=== PATIENT | male | born 1995 | race Caucasian/White ===

== ENCOUNTER 2022-07-26 18:53 | Emergency (ER) | payer BC, OTHER ==
[2022-07-26 19:15] VITALS: BP 144/82; PULSE 89; RESP 16; TEMP 98.2
[2022-07-26] MEDS ORDERED: ACET/COD 300 MG/30 MG STARTER PACK 6 TAB BTL PO STA (19:41)
[2022-07-26] MEDS ORDERED: IBUPROFEN 600 MG STARTER PACK 4 TAB BTL PO STA (19:41)
[2022-07-26] MEDS ORDERED: AMOXIC-POT CLAV 875MG STARTER PACK 2 TAB BTL PO STA (19:41)
[2022-07-26] MEDS ORDERED: HYDROcodone/APAP 5-325MG 1 EACH TAB PO STA (19:42)
--- NOTE | 2022-07-26 19:45 | ED ---
ENT HPI - General Chief complaint: Skin/Abscess/Foreign Body Stated complaint: INFECTED TOOTH Time Seen by Provider: 07/26/22 19:16 Source: patient, RN notes reviewed Mode of arrival: ambulatory Limitations: no limitations - History of Present Illness Initial comments: This is a 27-year-old male who presents to the emergency department for concerns of a dental abscess. States that he has had increasing pain to the teeth in the right lower jaw. Reports increasing swelling around the right lower jaw as well. States that he has chipped teeth in that area, which he believes caused an infection. He has been taking [id number] medication that he cannot recall the name of as well as Orajel with no improvement in pain. Currently seeing a dentist. Denies any fevers. Denies any fevers, chills, sore throat, cough, dyspnea, chest pain, palpitations, abdominal pain, nausea, vomiting, diarrhea, back pain, or headaches. MD complaint: tooth pain Onset/Timin - Related Data Home Medications Medication Instructions Recorded Confirmed Albuterol Inhaler [Ventolin 1 - 2 puff INHALATION Q6HR PRN 08/30/14 08/30/14 Inhaler] Previous Rx's Medication Instructions Recorded Albuterol Inhaler [Ventolin Hfa 1 - 2 puff INHALATION Q4-6H PRN #1 08/30/14 Inhaler] inhaler predniSONE 50 mg PO DAILY #5 tab 08/30/14 Amoxic-Pot Clav 875-125Mg 1 tab PO BID 7 Days #14 tab 07/26/22 [Augmentin 875-125] Ibuprofen 600 mg PO Q6H PRN #15 tab 07/26/22 Allergies Allergy/AdvReac Type Severity Reaction Status Date / Time No Known Allergies Allergy Verified 07/26/22 19:14 Review of Systems ROS Statement: Those systems with pertinent positive or pertinent negative responses have been documented in the HPI. ROS Other: All systems not noted in ROS Statement are negative. Past Medical History Past Medical History: Asthma History of Any Multi-Drug Resistant Organisms: None Reported Past Surgical History: No Surgical Hx Reported Past Psychological History: Depression Past Alcohol Use History: None Reported Past Drug Use History: None Reported General Exam Limitations: no limitations General appearance: alert, in no apparent distress Head exam: Present: atraumatic, normocephalic, normal inspection ENT exam: Present: other (Mild tenderness and possible mild fullness to the right lower jaw. Multiple dental caries and chipped teeth. There is no swelling or induration to the floor of the mouth.) Respiratory exam: Present: normal lung sounds bilaterally. Absent: respiratory distress, wheezes, rales, rhonchi, stridor Cardiovascular Exam: Present: regular rate, normal rhythm, normal heart sounds. Absent: systolic murmur, diastolic murmur, rubs, gallop, clicks Neurological exam: Present: alert, oriented X3, CN II-XII intact Psychiatric exam: Present: normal affect, normal mood Skin exam: Present: warm, dry, intact, normal color. Absent: rash Course Vital Signs 07/26/22 19:11 Temperature 98.2 F Pulse Rate 89 Respiratory 16 Rate Blood Pressure 144/82 O2 Sat by Pulse 97 Oximetry Medical Decision Making - Medical Decision Making This is a 27-year-old male who presents to the emergency department for dental pain. Was pt. sent in by a medical professional or institution? @ -No Did you speak to anyone other than the patient for history? @ -No Did you review nursing and triage notes? @ -Yes, and I agree, it is accurate with regards to the patient's symptoms. Were old charts reviewed? @ -No Differential Diagnosis? @ -Differential Dental Pain: Dental abscess, chipped tooth, dental carries, candace's angina, trigeminal neuralgia, this is not meant to be an all-inclusive list. What testing was considered but not performed? (CT, X-rays, U/S, labs)? Why? @ -None What meds were considered but not given? Why? @ -None Did you discuss the management of the patient with other professionals? @ -No Did you reconcile home meds? @ -No Was smoking cessation discussed for >3mins.? @ -No Was critical care preformed (if so, how long)? @ -No Were there social determinants of health that impacted care today? How? (Homelessness, low income, unemployed, alcoholism, drug addiction, transportation, low edu. Level, literacy, decrease access to med. care, shelter, rehab)? @ -No Was there de-escalation of care discussed even if they declined? (Discuss DNR or withdrawal of care, Hospice)? @ -No What co-morbidities impacted this encounter? (DM, HTN, Smoking, COPD, CAD, Cancer, CVA, Hep., AIDS, mental health diagnosis, sleep apnea, morbid obesity)? @ -None Was patient admitted / discharged? @ -Discharged. Physical exam consistent with dental infection versus possible developing dental abscess. Will treat patient with a course of antibiotics. Prescription for Augmentin provided with dosing instructions reviewed. Advised ibuprofen and Tylenol as needed for pain relief. Patient counseled on the need for oral hygiene. He is also instructed to become established with a dentist for ongoing dental care. Undiagnosed new problem with uncertain prognosis? @ -None Drug Therapy requiring intensive monitoring for toxicity (Heparin, Nitro, Insulin, Cardizem)? @ -None Were any procedures done? @ -None Diagnosis/symptom? @ -Dental infection Acute, or Chronic, or Acute on Chronic? @ -Acute Uncomplicated (without systemic symptoms) or Complicated (systemic symptoms)? @ -Uncomplicated Side effects of treatment? @ -None Exacerbation, Progression, or Severe Exacerbation] @ -Not applicable Poses a threat to life or bodily function? @ -No Return precautions reviewed in depth, the patient is instructed to return to the emergency department with any new, worsening, or concerning symptoms. Patient verbalized understanding. This case was discussed in detail with the attending ED physician, Dr. Rae. Presentation, findings, and treatment plan discussed in detail as well. Disposition Clinical Impression: Dental abscess Disposition: HOME SELF-CARE Instructions (If sedation given, give patient instructions): Dental Abscess (ED), Toothache (ED) Additional Instructions: Return to the emergency department with any new, worsening, or concerning symptoms. Take the antibiotic as prescribed for 7 days. Alternate with ibuprofen and Tylenol for pain relief. You can also continue using the Orajel. Make sure that you become established with a dentist for ongoing management. Follow up with your primary care provider in 1-2 days. Prescriptions: Amoxic-Pot Clav 875-125Mg [Augmentin 875-125] 1 tab PO BID 7 Days #14 tab Ibuprofen 600 mg PO Q6H PRN #15 tab PRN Reason: Pain Is patient prescribed a controlled substance at d/c from ED?: No Referrals: Socrates Yates MD [Primary Care Provider] - 1-2 days
== END 2022-07-26 19:54 | disposition home or self-care (01) ==
LOC: EC 18:53
DX: K04.7 Periapical abscess without sinus (principal); J45.909 Unspecified asthma, uncomplicated; F32.A Depression, unspecified; Z79.899 Other long term (current) drug therapy
CPT/HCPCS: 99283

== ENCOUNTER 2023-08-01 22:44 | Emergency (ER) | payer OTHER ==
[2023-08-01 23:23] VITALS: RESP 18
--- NOTE | 2023-08-02 00:17 | ED ---
General Adult HPI - General Chief complaint: Upper Respiratory Infection Stated complaint: SOB congestion fatigue cough Time Seen by Provider: 08/01/23 23:04 Source: patient Mode of arrival: ambulatory Limitations: no limitations - History of Present Illness Initial comments: 28-year-old male with a past medical history significant for asthma presented to the ED with complaints of cough, congestion, dyspnea for the past week and a half. Denies fever or chills. Denies chest pain. Of note, patient noted to answer yes under suicidal ideation screening questions. Asked the question about this. Patient reports no history of self-harm or suicidal ideation. Denies auditory or visual hallucinations. Denies homicidal ideation. Patient reports that he is currently trying to find counseling at this moment. No other complaints at this time. - Related Data Home Medications Medication Instructions Recorded Confirmed Albuterol Inhaler [Ventolin 1 - 2 puff INHALATION Q6HR PRN 08/30/14 08/30/14 Inhaler] Previous Rx's Medication Instructions Recorded Albuterol Inhaler [Ventolin Hfa 1 - 2 puff INHALATION Q4-6H PRN #1 08/30/14 Inhaler] inhaler predniSONE 50 mg PO DAILY #5 tab 08/30/14 Amoxic-Pot Clav 875-125Mg 1 tab PO BID 7 Days #14 tab 07/26/22 [Augmentin 875-125] Ibuprofen 600 mg PO Q6H PRN #15 tab 07/26/22 Albuterol Inhaler [Ventolin Hfa 1 - 2 puff INHALATION Q6H PRN #1 08/02/23 Inhaler] each predniSONE [Deltasone] 20 mg PO BID 5 Days #10 tab 08/02/23 Allergies Allergy/AdvReac Type Severity Reaction Status Date / Time No Known Allergies Allergy Verified 08/01/23 22:59 Review of Systems ROS Statement: Those systems with pertinent positive or pertinent negative responses have been documented in the HPI. ROS Other: All systems not noted in ROS Statement are negative. Past Medical History Past Medical History: Asthma History of Any Multi-Drug Resistant Organisms: None Reported Past Surgical History: No Surgical Hx Reported Past Psychological History: Depression Past Alcohol Use History: None Reported Past Drug Use History: None Reported General Exam Limitations: no limitations General appearance: alert, in no apparent distress Eye exam: Present: normal appearance Neck exam: Present: normal inspection Respiratory exam: Present: normal lung sounds bilaterally Cardiovascular Exam: Present: regular rate GI/Abdominal exam: Present: soft Neurological exam: Present: alert, oriented X3 Skin exam: Present: warm, dry Course Vital Signs 08/01/23 22:52 Temperature 98.8 F Pulse Rate 108 H Respiratory 18 Rate Blood Pressure 124/82 O2 Sat by Pulse 98 Oximetry Medical Decision Making - Medical Decision Making Was pt. sent in by a medical professional or institution (, [facility], [employer], urgent care, hospital, or care home...) When possible be specific @ -No Did you speak to anyone other than the patient for history (EMS, parent, family, police, friend...)? What history was obtained from this source @ -No Did you review nursing and triage notes (agree or disagree)? Why? @ -I reviewed and agree with nursing and triage notes Were old charts reviewed (outside hosp., previous admission, EMS record, old EKG, old radiological studies, urgent care reports/EKG's, care home records)? Report findings @ -No old charts were reviewed Differential Diagnosis (chest pain, altered mental status, abdominal pain women, abdominal pain men, vaginal bleeding, weakness, fever, dyspnea, syncope, headache, dizziness, GI bleed, back pain, seizure, CVA, palpatations, mental health, musculoskeletal)? @ -Differential Dyspnea: Coronary syndrome, arrhythmia, tamponade, asthma, COPD, pulmonary embolism, p neumonia, pneumothorax, pulmonary effusion, anaphylaxis, diabetic ketoacidosis, flailed chest, pulmonary contusion, diaphragmatic rupture, anemia, neuromuscular, this is not meant to be an all-inclusive list. EKG interpreted by me (3pts min.). @ -As above X-rays interpreted by me (1pt min.). @ -Chest x-ray interpreted me which revealed no evidence of acute finding. CT interpreted by me (1pt min.). @ -None done U/S interpreted by me (1pt. min.). @ -None done What testing was considered but not performed or refused? (CT, X-rays, U/S, labs)? Why? @ -None What meds were considered but not given or refused? Why? @ -None Did you discuss the management of the patient with other professionals (professionals i.e. , [facility], [employer], lab, RT, psych nurse, social science teacher, sand temperer, teacher, information assurance officer, immigration case worker)? Give summary @ -No Was smoking cessation discussed for >3mins.? @ -No Was critical care preformed (if so, how long)? @ -No Were there social determinants of health that impacted care today? How? (Homelessness, low income, unemployed, alcoholism, drug addiction, transportation, low edu. Level, literacy, decrease access to med. care, assisted, r ehab)? @ -No Was there de-escalation of care discussed even if they declined (Discuss DNR or withdrawal of care, Hospice)? DNR status @ -No What co-morbidities impacted this encounter? (DM, HTN, Smoking, COPD, CAD, Cancer, CVA, ARF, Chemo, Hep., AIDS, mental health diagnosis, sleep apnea, morbid obesity)? @ -Asthma Was patient admitted / discharged? Hospital course, mention meds given and route, prescriptions, significant lab abnormalities, going to OR and other pertinent info. @ -Discharge 28-year-old male presents to the ED with complaints of cough, congestion, dyspnea for the past week. On examination lungs clear with no evidence of respiratory distress. Serology panel negative. Chest x-ray revealed no evidence of pneumonia or other acute process. Patient discharged home with prescriptions for albuterol inhaler and prednisone. Regarding patient's response when asked yes if he wanted to , patient currently reports that he has had no prior history of self-harm or suicidal ideation. Currently has no plans of suicidal ideation and denies homicidal ideation. Patient reports that he is following with his PCP to attempt to get counseling for this. Patient was discharged home in stable condition with instructions to follow-up with his PCP within the next few days. Discussed return precautions with patient who verbalized agreement. Undiagnosed new problem with uncertain prognosis? @ -No Drug Therapy requiring intensive monitoring for toxicity (Heparin, Nitro, Insulin, Cardizem)? @ -No Were any procedures done? @ -No Diagnosis/symptom? @ -Viral URI Acute, or Chronic, or Acute on Chronic? @ -Acute Uncomplicated (without systemic symptoms) or Complicated (systemic symptoms)? @ -Uncomplicated Side effects of treatment? @ -No Exacerbation, Progression, or Severe Exacerbation? @ -No Poses a threat to life or bodily function? How? (Chest pain, [place], [place], pneumonia, PE, COPD, DKA, ARF, appy, cholecystitis, CVA, Diverticulitis, Homicidal, Suicidal, threat to staff... and all critical care pts) @ -No - Lab Data Lab Results 08/01/23 Range/Units 23:33 Influenza Type A (PCR) Not Detected (Not Detectd) Influenza Type B (PCR) Not Detected (Not Detectd) RSV (PCR) Not Detected (Not Detectd) SARS-CoV-2 (PCR) Not Detected (Not Detectd) Disposition Clinical Impression: Viral URI Disposition: HOME SELF-CARE Condition: Good Additional Instructions: Please return to the Emergency Department if symptoms worsen or any other concerns. Please follow-up with your primary care provider. Prescriptions: predniSONE [Deltasone] 20 mg PO BID 5 Days #10 tab Albuterol Inhaler [Ventolin Hfa Inhaler] 1 - 2 puff INHALATION Q6H PRN #1 each PRN Reason: Shortness Of Breath Is patient prescribed a controlled substance at d/c from ED?: No Referrals: Socrates Yates MD [Primary Care Provider] - 1-2 days Time of Disposition: 00:36
--- NOTE | 2023-08-02 00:28 | XR ---
EXAM: XR Chest, 2 Views CLINICAL HISTORY: ITS.REASON XR Reason: r/o pna TECHNIQUE: Frontal and lateral views of the chest. COMPARISON: No relevant prior studies available. FINDINGS: Lungs: Unremarkable. No consolidation. Pleural space: Unremarkable. No pneumothorax. Heart: Unremarkable. No cardiomegaly. Mediastinum: Unremarkable. Normal mediastinal contour. Bones/joints: Unremarkable. No acute fracture. IMPRESSION: Normal chest x-rays.
[2023-08-02] MEDS: predniSONE 50 MG TAB PO STA (00:56)
[2023-08-02 01:38] VITALS: BP 118/65; PULSE 78; TEMP 97.7
== END 2023-08-02 00:58 | disposition home or self-care (01) ==
LOC: EC 22:44
DX: J06.9 Acute upper respiratory infection, unspecified (principal); J45.909 Unspecified asthma, uncomplicated; Z79.899 Other long term (current) drug therapy
CPT/HCPCS: 71046; 87636; 99285

== ENCOUNTER 2024-04-19 17:06 | Emergency (ER) | payer OTHER ==
[2024-04-19 17:10] VITALS: RESP 20
--- NOTE | 2024-04-19 17:28 | XR ---
EXAMINATION TYPE: XR hand complete RT DATE OF EXAM: 04/19/2024 5:19 PM COMPARISON: None CLINICAL INDICATION: Male, 28 years old with history of Dog Bite; PHH, pain TECHNIQUE: XR hand complete RT 3 views were obtained. FINDINGS: Normal alignment of the visualized joints. No acute osseous pathology is identified. No e vidence of soft tissue swelling. No significant degeneration. No radiopaque foreign body. No lacerati on definitively visualized. IMPRESSION: 1. No acute osseous pathology. 2. No radiopaque foreign body. 3. Soft tissue laceration not definitively visualized. [facility], , 04/19/2024 5:26 PM
--- NOTE | 2024-04-19 17:43 | ED ---
Wound/Laceration HPI - General Source: patient, RN notes reviewed Mode of arrival: ambulatory Limitations: no limitations - History of Present Illness Onset/Timin -: hour(s) Extremity Location: Right: Hand <Mazin Salcedo - Last Filed: 04/19/24 17:41> <Edis Montana - Last Filed: 04/20/24 22:25> - General Chief Complaint: Wound/Laceration Stated Complaint: R hand lac Time Seen by Provider: 04/19/24 17:18 - History of Present Illness Initial Comments: Quick note: This is a 28-year-old male presenting with dog bite of right hand x 1 hour ago. Patient states he was bitten by a medium size (40 pound) known dog. States he came immediately to the ER following the bite. States the dog's rabies vaccination is up-to-date as well as his tetanus vaccination status. (Mazin Salcedo) 28-year-old male presenting with chief complaint of dog bite. Patient was bitten by his family dog about an hour ago. He has a puncture wound to the center of the right hand. Dog's vaccinations are up-to-date and his tetanus vaccination is up-to-date. He has full range of motion and sensation. No obvious deformity. (Edis Montana) - Related Data Home Medications Medication Instructions Recorded Confirmed Albuterol Inhaler [Ventolin 1 - 2 puff INHALATION Q6HR PRN 08/30/14 08/30/14 Inhaler] Previous Rx's Medication Instructions Recorded Albuterol Inhaler [Ventolin Hfa 1 - 2 puff INHALATION Q4-6H PRN #1 08/30/14 Inhaler] inhaler predniSONE 50 mg PO DAILY #5 tab 08/30/14 Amoxic-Pot Clav 875-125Mg 1 tab PO BID 7 Days #14 tab 07/26/22 [Augmentin 875-125] Ibuprofen 600 mg PO Q6H PRN #15 tab 07/26/22 Albuterol Inhaler [Ventolin Hfa 1 - 2 puff INHALATION Q6H PRN #1 08/02/23 Inhaler] each predniSONE [Deltasone] 20 mg PO BID 5 Days #10 tab 08/02/23 Amoxic-Pot Clav 875-125Mg 1 tab PO BID 7 Days #14 tab 04/19/24 [Augmentin 875-718] Allergies Allergy/AdvReac Type Severity Reaction Status Date / Time No Known Allergies Allergy Verified 04/19/24 17:09 Review of Systems ROS Other: All systems not noted in ROS Statement are negative. <Mazin Salcedo - Last Filed: 04/19/24 17:41> ROS Other: All systems not noted in ROS Statement are negative. <Edis Montana - Last Filed: 04/20/24 22:25> ROS Statement: Those systems with pertinent positive or pertinent negative responses have been documented in the HPI. Past Medical History Past Medical History: Asthma History of Any Multi-Drug Resistant Organisms: None Reported Past Surgical History: No Surgical Hx Reported Past Psychological History: Depression Smoking Status: Never smoker Past Alcohol Use History: None Reported Past Drug Use History: None Reported <Mazin Salcedo - Last Filed: 04/19/24 17:41> General Exam Limitations: no limitations <Mazin Salcedo - Last Filed: 04/19/24 17:41> General appearance: alert, in no apparent distress Head exam: Present: atraumatic, normocephalic, normal inspection Eye exam: Present: normal appearance, EOMI Neck exam: Present: normal inspection. Absent: meningismus Respiratory exam: Absent: respiratory distress Right Hand Wrist exam: Present: full ROM, tenderness, laceration (Puncture) Neurological exam: Present: alert, oriented X3 Psychiatric exam: Present: normal affect, normal mood <Edis Montana - Last Filed: 04/20/24 22:25> - General Exam Comments Initial Comments: Visual Physical Exam Vital signs reviewed General: Well-appearing, nontoxic, no acute distress. Head: Normocephalic, atraumatic Eyes: PERRLA, EOMI ENT: Airway patent Chest: Nonlabored breathing Skin: No visual rash, normal skin tone Neuro: Alert and oriented 3 Musculoskeletal: No gross abnormalities. Patient's right hand is bandaged (Mazin Salcedo) Course Vital Signs 04/19/24 04/19/24 17:08 19:05 Temperature 98.1 F 98.0 F Pulse Rate 112 H 99 Respiratory 20 20 Rate Blood Pressure 122/79 115/75 O2 Sat by Pulse 97 98 Oximetry Medical Decision Making <Mazin Salcedo - Last Filed: 04/19/24 17:41> <Edis Montana - Last Filed: 04/20/24 22:25> - Medical Decision Making I completed the quick note portion of this chart signed DIO Brown (Mazin Salcedo) Was pt. sent in by a medical professional or institution ([employer], [employer]LL[employer] PROCESSING MACHINE TENDER, urgent care, hospital, or retirement...) When possible be specific @ -No Did you speak to anyone other than the patient for history (EMS, parent, family, police, friend...)? What history was obtained from this source @ -No Did you review nursing and triage notes (agree or disagree)? Why? @ -I reviewed and agree with nursing and triage notes Were old charts reviewed (outside hosp., previous admission, EMS record, old EKG, old radiological studies, urgent care reports/EKG's, retirement records)? Report findings @ -No old charts were reviewed Differential Diagnosis (chest pain, altered mental status, abdominal pain women, abdominal pain men, vaginal bleeding, weakness, fever, dyspnea, syncope, headache, dizziness, GI bleed, back pain, seizure, CVA, palpatations, mental health, musculoskeletal)? @ -Differential includes uncomplicated dog bite, fracture, foreign body EKG interpreted by me (3pts min.). @ -As above X-rays interpreted by me (1pt min.). @ -X-ray shows no acute osseous pathology. No radiopaque foreign body. Soft tissue laceration not definitively visualized CT interpreted by me (1pt min.). @ -None done U/S interpreted by me (1pt. min.). @ -None done What testing was considered but not performed or refused? (CT, X-rays, U/S, labs)? Why? @ -None What meds were considered but not given or refused? Why? @ -None Did you discuss the management of the patient with other professionals (professionals i.e. [employer], [employer] PROCESSING MACHINE TENDER, lab, RT, psych nurse, social media job titles, longshore equipment operator, teacher, public affairs officer, case checker)? Give summary @ -No Was smoking cessation discussed for >3mins.? @ -No Was critical care preformed (if so, how long)? @ -No Were there social determinants of health that impacted care today? How? (Homelessness, low income, unemployed, alcoholism, drug addiction, transportation, low edu. Level, literacy, decrease access to med. care, fci, rehab)? @ -No Was there de-escalation of care discussed even if they declined (Discuss DNR or withdrawal of care, Hospice)? DNR status @ -No What co-morbidities impacted this encounter? (DM, HTN, Smoking, COPD, CAD, Cancer, CVA, ARF, Chemo, Hep., AIDS, mental health diagnosis, sleep apnea, morbid obesity)? @ -None Was patient admitted / discharged? Hospital course, mention meds given and route, prescriptions, significant lab abnormalities, going to OR and other pertinent info. @ -28-year-old male presenting chief complaint of dog bite. He was bitten by his own dog on the center of his right hand. He is neurovascularly intact. Tetanus is up-to-date. His dog has also been vaccinated. Wound is thoroughly irrigated and dressed. Patient is started on Augmentin. Educated on wound care and signs of infection. Follow-up with PCP. Report back to ER with any new or worsening symptoms. Discussed return parameters and answered all questions. Patient conveyed verbal understanding and agreed to the plan. I discussed this case in detail with my attending Dr. Rodas Undiagnosed new problem with uncertain prognosis? @ -No Drug Therapy requiring intensive monitoring for toxicity (Heparin, Nitro, Insulin, Cardizem)? @ -No Were any procedures done? @ -No Diagnosis/symptom? @ -Dog bite Acute, or Chronic, or Acute on Chronic? @ -Acute Uncomplicated (without systemic symptoms) or Complicated (systemic symptoms)? @ -uncomplicated Side effects of treatment? @ -No Exacerbation, Progression, or Severe Exacerbation? @ -No Poses a threat to life or bodily function? How? (Chest pain, [place], [place], pneumonia, PE, COPD, DKA, ARF, appy, cholecystitis, CVA, Diverticulitis, Homicidal, Suicidal, threat to staff... and all critical care pts) @ -Low likelihood (Edis Montana) Disposition <Mazin Salcedo - Last Filed: 04/19/24 17:41> Is patient prescribed a controlled substance at d/c from ED?: No Time of Disposition: 18:46 <Edis Montana - Last Filed: 04/20/24 22:25> Clinical Impression: Dog bite Disposition: HOME SELF-CARE Condition: Good Instructions (If sedation given, give patient instructions): Animal Bite (ED) Additional Instructions: Follow-up with PCP. Report back to ER with any new or worsening symptoms. Keep the wound clean dry and covered. Wash daily with soap and water. Take medication as prescribed. Prescriptions: Amoxic-Pot Clav 875-125Mg [Augmentin 875-125] 1 tab PO BID 7 Days #14 tab Referrals: Socrates Yates MD [Primary Care Provider] - 1-2 days
[2024-04-19] MEDS: AMOXIC-POT CLAV 875MG STARTER PACK 2 TAB BTL PO STA (19:01)
[2024-04-19 19:06] VITALS: BP 115/75; PULSE 99; TEMP 98
== END 2024-04-19 19:05 | disposition home or self-care (01) ==
LOC: EC 17:06
DX: S61.451A Open bite of right hand, initial encounter (principal); W54.0XXA Bitten by dog, initial encounter
CPT/HCPCS: 99283